=== PATIENT | female | born 1960 | race Caucasian/White ===

== ENCOUNTER 2016-11-22 08:07 | Inpatient (IN) | payer BC ==
[~2016-11-22 08:07] MED LIST: Lactated Ringers 1,000 ML IV SCH; Lidocaine 1%/Sod Bicarbonate in NS 8.4% 1 ML Syringe PRN; Sodium Chloride 0.9% 10 ML Syringe FLUSH PRN
--- NOTE | 2016-11-22 08:53 | PCM.PREANE ---
Preanesthetic Assessment - Procedure Proposed Procedure: Right total knee arthroplasty with L knee cortisone injection - Anesthesia/Transfusion/Family Hx Anesthesia History: Prior Anesthesia Without Reaction Family History of Anesthesia Reaction: No Transfusion History: Prior Transfusion Without Reaction Intubation History: Unknown - Review of Systems General: No Symptoms Pulmonary: No Symptoms Cardiovascular: No Symptoms Gastrointestinal: Other (GERD relieved with TUMS) Neurological: Headache (occasional ) Other: Reports: Easy Bruising, Anxiety - Physical Assessment NPO Status Date: 11/21/16 NPO Status Time: 19:00 Pulse: 60 O2 Sat by Pulse Oximetry: 98 Respiratory Rate: 16 Blood Pressure: 139/85 Temperature: 37.2 C Height: 1.63 m Weight: 85.275 kg ASA Class: 2 Mental Status: Alert & Oriented x3 Airway Class: Mallampati = 1 Dentition: Reports: Normal Dentition Thyro-Mental Finger Breadths: 3 Mouth Opening Finger Breadths: 3 ROM/Head Extension: Full Lungs: Clear to Auscultation, Normal Respiratory Effort Cardiovascular: Regular Rate, Regular Rhythm - Lab Values: Laboratory Last Values MRSA (PCR) Negative 11/09/16 11:55 - Allergies Allergies/Adverse Reactions: Allergies Allergy/AdvReac Type Severity Reaction Status Date / Time pear Allergy throat Verified 03/06/14 16:23 closes strawberry Allergy throat Verified 03/06/14 16:23 closes watermelon Allergy throat Uncoded 03/06/14 16:23 closes - Blood Blood Available: No - Anesthesia Plan Pre-Op Medication Ordered: None - Acknowledgements Anesthesia Type Planned: Spinal (with duramorph) Pt an Appropriate Candidate for the Planned Anesthesia: Yes Alternatives and Risks of Anesthesia Discussed w Pt/Guardian: Yes Pt/Guardian Understands and Agrees with Anesthesia Plan: Yes PreAnesthesia Questionnaire HEENT 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: Allergic Rhinitis, Other (See Below) Other HEENT History: glasses Cardiovascular 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: High Cholesterol Respiratory 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: None Genitourinary 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: None 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: , Other (See Below) Other OB/BYN History: menopausal Neurological 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: None Psychiatric 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: Anxiety Endocrine/Metabolic 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: None Hematologic 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: None Immunologic 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: None Oncologic (Cancer) 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: None Dermatologic 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: Other (See Below) Other Dermatologic History: eczematoid dermatitis - Past Surgical History Head Surgeries/Procedures: Reports: None Cardiovascular Surgical 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: None Respiratory Surgical 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: None GI Surgical 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: Appendectomy Female Surgical 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: Section, Other (See Below) Other Female Surgeries/Procedures: exploratory lapaprotomy Musculoskeletal Surgical 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: Shoulder Surgery, Other (See Below) Other Musculoskeletal Surgeries/Procedures:: Right knee arthroscopy Oncologic Surgical 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: None - SUBSTANCE USE Smoking Status *Q: Former Smoker Second Hand Smoke Exposure: No Days Per Week of Alcohol Use: 0 Recreational Drug Use History: No - HOME MEDS Home Medications: Home Meds FLUoxetine HCl [Prozac] 10 mg PO QAM #15 capsule 03/06/14 [Rx] LORazepam [LORazepam] 0.5 mg PO Q6H PRN 11/21/16 [History] - CURRENT (IN HOUSE) MEDS Current Meds: Current Medications Lactated Ringer's (Ringers, Lactated) 1,000 mls @ 125 mls/hr IV ASDIRECTED STARR Stop: 11/22/16 23:00 Lidocaine/Sodium Bicarbonate (Buffered Lidocaine 1% In Ns 8.4%) 0.25 ml .XX ONETIME PRN PRN Reason: Prior to IV Start Stop: 11/22/16 12:00 Sodium Chloride (Saline Flush) 10 ml FLUSH ASDIRECTED PRN PRN Reason: Keep Vein Open Stop: 11/22/16 12:00 Discontinued Medications Morphine Sulfate 8 mg/Epinephrine HCl 0.3 mg/Cefuroxime Sodium 750 mg/Ketorolac Tromethamine 30 mg/Sodium Chloride 27.9 ml 0 mg .XX ONETIME ONE Stop: 11/22/16 08:31
[2016-11-22] MEDS ORDERED: Propofol 200 MG/20 ML SDV ONE ×3 (09:24→12:26)
[2016-11-22] MEDS ORDERED: fentaNYL 100 MCG/2 ML SDV ONE (09:24)
[2016-11-22] MEDS ORDERED: Midazolam 1 MG/ML 2 ML SDV ONE (09:24)
[2016-11-22] MEDS ORDERED: Lidocaine 1% 4 ML ONE (09:24)
[2016-11-22] MEDS ORDERED: Ondansetron 4 MG/2 ML SDV ONE (09:24)
[2016-11-22] MEDS ORDERED: Morphine PF 10 MG/10 ML SDV ONE (09:25)
[2016-11-22] MEDS ORDERED: ceFAZolin 1 GM Vial ONE (09:25)
[2016-11-22] MEDS ORDERED: Lactated Ringers 1,000 ML ONE ×2 (11:41→12:54)
[2016-11-22] MEDS: Iodine/Sodium Iodide 2% Tincture 30 ML Bottle ONE ×2 (12:02→12:16)
[2016-11-22] MEDS: ceFAZolin 1 GM Vial ONE ×2 (12:02→12:21)
[2016-11-22] MEDS: Morphine 8 MG, EPINEPHrine 0.3 MG, Cefuroxime 750 MG, Ketorolac 30 MG, Sodium Chloride ... ONE ×15 (12:05→19:42)
[2016-11-22] MEDS: Vancomycin 1 GM SDV ONE ×2 (12:05→12:31)
[2016-11-22] MEDS: Bupivacaine 0.25% 30 ML SDV ONE ×2 (12:05→12:26)
[2016-11-22] MEDS: Bupivacaine 0.25% 10 ML SDV ONE ×2 (12:06→13:00)
[2016-11-22] MEDS: Triamcinolone Acetonide 40 MG/ML 1 ML MDV ONE ×2 (12:06→13:00)
[2016-11-22] MEDS ORDERED: ePHEDrine/Normal Saline 25 MG/5 ML Syringe ONE (12:34)
[2016-11-22] MEDS ORDERED: Morphine 2 MG/ML Syringe IVPUSH PRN (12:48)
[2016-11-22] MEDS ORDERED: diphenhydrAMINE 50 MG/ML SDV IVPUSH PRN ×2 (12:48→13:09)
[2016-11-22] MEDS ORDERED: Naloxone 0.4 MG/ML SDV IVPUSH PRN (12:48)
[2016-11-22] MEDS ORDERED: Sennosides 8.6 MG Tab PO PRN (12:48)
[2016-11-22] MEDS ORDERED: Bisacodyl 5 MG Tab PO PRN (12:48)
[2016-11-22] MEDS ORDERED: Magnesium Hydroxide 400 MG/5 ML Susp 30 ML Cup PO PRN (12:48)
[2016-11-22] MEDS ORDERED: LORazepam 0.5 MG Tab PO PRN (13:03)
--- NOTE | 2016-11-22 13:11 | PCM.POSTAN ---
POST ANESTHESIA ASSESSMENT - MENTAL STATUS Mental Status: Alert, Oriented - VITAL SIGNS Pulse Rate: 82 SaO2: 95 Resp Rate: 12 Blood Pressure: 120/59 Temperature: 36.8 C - RESPIRATORY Respiratory Status: Respiratory Rate WNL, Airway Patent, O2 Saturation Stable - CARDIOVASCULAR CV Status: Pulse Rate WNL, Blood Pressure Stable - GASTROINTESTINAL GI Status: No Symptoms - PAIN Pain Score: 0 - POST OP HYDRATION Hydration Status: Adequate & Stable - OBSERVATIONS Free Text/Narrative:: no anesthesia complications noted
--- NOTE | 2016-11-22 14:10 | PCM.CONS ---
H&P History of Present Illness - General Date of Service: 11/22/16 Admit Problem/Dx: Admission Diagnosis/Problem Admission Diagnosis/Problem Osteoarthritis of knee Source of Information: Patient, Old Records, Provider, RN Notes Reviewed History Limitations: Reports: Physical Impairment - History of Present Illness Initial Comments - Free Text/Narative: This is a 56-year-old, white female, with no significant past medical history except for bilateral knee osteoarthritis and obesity who underwent right total knee arthroplasty with left knee cortisone injection post operative day zero. Patient is nauseous and vomited x 2. Currently, her pain is controlled. She denies any other acute issues. Hospital Medicine was consulted for postoperative care. Right Knee Pain Score (Numeric/FACES): 5 - Related Data Allergies/Adverse Reactions: Allergies Allergy/AdvReac Type Severity Reaction Status Date / Time adhesive tape Allergy Itching Verified 11/22/16 16:44 pear Allergy throat Verified 03/06/14 16:23 closes strawberry Allergy throat Verified 03/06/14 16:23 closes watermelon Allergy throat Uncoded 03/06/14 16:23 closes Home Medications: Home Meds FLUoxetine HCl [Prozac] 10 mg PO QAM #15 capsule 03/06/14 [Rx] LORazepam [LORazepam] 0.5 mg PO Q6H PRN 11/21/16 [History] Past Medical History HEENT 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: Allergic Rhinitis, Other (See Below) Other HEENT History: glasses Cardiovascular 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: High Cholesterol Respiratory 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: None Genitourinary 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: None 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: , Other (See Below) Other OB/BYN History: menopausal Neurological 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: None Psychiatric 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: Anxiety Endocrine/Metabolic 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: None Hematologic 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: None Immunologic 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: None Oncologic (Cancer) 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: None Dermatologic 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: Other (See Below) Other Dermatologic History: eczematoid dermatitis - Past Surgical History Head Surgeries/Procedures: Reports: None Cardiovascular Surgical 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: None Respiratory Surgical 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: None GI Surgical 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: Appendectomy Female Surgical 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: Section, Other (See Below) Other Female Surgeries/Procedures: exploratory lapaprotomy Musculoskeletal Surgical 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: Shoulder Surgery, Other (See Below) Other Musculoskeletal Surgeries/Procedures:: Right knee arthroscopy Oncologic Surgical 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: None Social & Family History - Tobacco Use Smoking Status *Q: Former Smoker Years of Tobacco use: 27 Used Tobacco, but Quit: Yes Month Tobacco Last Used: 1999 Second Hand Smoke Exposure: No - Caffeine Use Caffeine Use: Reports: Coffee - Alcohol Use Days Per Week of Alcohol Use: 0 - Recreational Drug Use Recreational Drug Use: No H&P Review of Systems - Review of Systems: Review Of Systems: See Below General: Denies: Fever, Chills, Malaise, Weakness HEENT: Reports: No Symptoms Pulmonary: Denies: Shortness of Breath, Cough Cardiovascular: Denies: Chest Pain, Palpitations, Lightheadedness Gastrointestinal: Denies: Abdominal Pain, Nausea, Vomiting Genitourinary: Reports: No Symptoms Musculoskeletal: Reports: No Symptoms Skin: Denies: Cyanosis, Rash, Erythema, Wound Psychiatric: Denies: Depression, Anxiety, Agitation, Hallucinations Neurological: Reports: Gait Disturbance. Denies: Confusion Hematologic/Lymphatic: Reports: No Symptoms Immunologic: Reports: No Symptoms Exam - Exam Exam: See Below - Vital Signs Vital Signs: Last Vital Signs Temp 37.1 C 11/22/16 13:48 Pulse 82 11/22/16 13:10 Resp 14 11/22/16 13:48 BP 107/57 L 11/22/16 13:48 Pulse Ox 98 11/22/16 13:48 Weight: 85.275 kg - Exam General: Alert, Oriented, Cooperative, Mild Distress, Other (Obese) HEENT: Conjunctiva Clear, EACs Clear, EOMI, Hearing Intact, Mucosa Moist & [place] , Nares Patent, Normal Nasal Septum, Posterior Pharynx Clear, Pupils Equal, Pupils Reactive Neck: Supple, Trachea Midline, Full Range of Motion. No: JVD Lungs: Clear to Auscultation, Normal Respiratory Effort Cardiovascular: Regular Rate, Regular Rhythm GI/Abdominal Exam: Normal Bowel Sounds, Soft, Non-Tender, No Organomegaly (Female) Exam: Other (indwelling regan catheter) Rectal (Female) Exam: Deferred Back Exam: Normal Inspection Extremities: Normal Inspection, Normal Range of Motion, Non-Tender, No Pedal Edema, Normal Capillary Refill Skin: Warm, Dry, Intact Neuro Extensive - Mental Status: Oriented x3, Normal Cognition, Memory Intact Neuro Extensive - Motor, Sensory, Reflexes: CN II-XII Intact (limited but grossly intact), Abnormal Gait Psychiatric: Alert, Normal Affect, Normal Mood Consult PN Assessment/Plan POD#: 0 Procedures: Procedures ASSAY OF FREE THYROXINE (02/08/14) ASSAY OF LIPASE (03/06/14) ASSAY OF TROPONIN QUANT (03/06/14) ASSAY THYROID STIM HORMONE (02/08/14) C-REACTIVE PROTEIN (03/06/14) CHEST X-RAY 2VW FRONTAL&LATL (08/20/13) COMP SCREEN MAMMOGRAM ADD-ON (04/24/14) COMPLETE CBC W/AUTO DIFF WBC (03/06/14) COMPREHEN METABOLIC PANEL (03/06/14) CREATINE MB FRACTION (08/20/13) DXA BONE DENSITY AXIAL (04/24/14) ECG/MONITORING AND ANALYSIS (02/12/14) ELECTROCARDIOGRAM TRACING (03/06/14) EMERGENCY DEPT VISIT (03/06/14) EMERGENCY DEPT VISIT (08/20/13) LIPID PANEL (02/12/14) PROTHROMBIN TIME (08/20/13) REMOTE 30 DAY ECG REV/REPORT (02/12/14) ROUTINE VENIPUNCTURE (03/06/14) THER/PROPH/DIAG INJ IV PUSH (03/06/14) THROMBOPLASTIN TIME PARTIAL (08/20/13) URINALYSIS AUTO W/SCOPE (03/06/14) URINE BACTERIA CULTURE (03/06/14) Problem List Initiated/Reviewed/Updated: Yes Plan: Assessment: Acute: Post-Operative Care State - Stable - Continue to monitor for hemodynamic instability S/p Right Total Knee Arthroplasty with Left Knee Steroid Injection - Stable - DVT and Pain Management as per primary team Hx/o B/L Chronic Knee Pain - Pain Management as per primary team Post-Operative Nausea/Vomiting - Vomited x 2 already - PRN anti-emesis - Scopolamine patch x1 now Chronic: B/L Knee OA Obesity with BMI of 31.3 Plan: She is appears clinically stable at this time Routine AM labs Continue home meds PT/OT consult IS q2 awake Thank you for the opportunity to participate in the management of this patient. Requesting Provider: Dr. Garcia Date Consult Requested: 11/22/16 Reason for Consult: Post-Operative Care Patient History Reviewed: Yes Admission H&P Reviewed: Yes Consult Result/Summary: Fairly Stable
[2016-11-22] MEDS: Ondansetron 4 MG/2 ML SDV IVPUSH PRN (14:31)
--- NOTE | 2016-11-22 16:13 | CR ---
Right knee: AP and lateral views of the right knee were obtained. Comparison: No prior knee exam. Knee prosthesis is seen. Components are aligned. Underlying bony structures are intact. Soft tissue air is noted from the surgical procedure. Impression: 1. Satisfactory postop radiographic appearance of recently placed right knee prosthesis. Diagnostic code #2
[2016-11-22] MEDS ORDERED: Scopolamine 1.5 MG Transdermal Patch TOP ONE (17:24)
[2016-11-22] MEDS: ceFAZolin 2 GM in Premix Bag 1 BAG IV SCH (18:07)
[2016-11-22] MEDS ORDERED: Metoclopramide 10 MG/2 ML SDV IVPUSH ONE (18:22)
[2016-11-22] MEDS: Docusate Sodium 100 MG Cap PO SCH (20:28)
[2016-11-22] MEDS: Famotidine 20 MG Tab PO SCH (20:28)
--- NOTE | 2016-11-22 22:21 | PCM.OPNOTE ---
- General Post-Op/Procedure Note Date of Surgery/Procedure: 11/22/16 Operative Procedure(s): right total knee arthroplasty with left knee corticosteroid injection Pre Op Diagnosis: bilateral knee osteoarthrosis Post-Op Diagnosis: Same Anesthesia Technique: Local, MAC, Spinal Primary Surgeon: Laci Garcia Anesthesia Provider: Diogenes Carson Drier: Mireya Hollingswroth Drier: Marita Triplett EBL in mLs: 370 Complications: None Condition: Good Free Text/Narrative:: Intake & Output 11/22/16 11/22/16 11/22/16 06:59 14:59 22:59 Intake Total 300 473 Output Total 90 650 Balance 210 -177
--- NOTE | 2016-11-22 23:09 | OR ---
DATE OF OPERATION: 11/22/2016 SURGEON: Laci Garcia MD OPERATION PERFORMED: Right total knee arthroplasty with left knee corticosteroid injection. PREOPERATIVE DIAGNOSIS: Bilateral knee osteoarthrosis. POSTOPERATIVE DIAGNOSIS: Bilateral knee osteoarthrosis. ANESTHESIA: Local MAC and spinal. ANESTHESIA PROVIDER: Diogenes Carson CRNA. ASSISTANTS: Mireya Hollingsworth PA-C and Marita Triplett LPN. ESTIMATED BLOOD LOSS: 370 mL. COMPLICATIONS: None. CONDITION: Stable. DESCRIPTION OF PROCEDURE: The patient was identified in the preop holding area. Proper site was marked and identified by the surgeon. The patient was taken back to the operating theater where after adequate anesthesia, the patient's right lower extremity had a nonsterile tourniquet applied and was then sterilely prepped and draped in the usual sterile fashion. OR time-out was performed. The patient received 2 g IV Ancef. Right lower extremity was exsanguinated. Tourniquet was insufflated to 300 mmHg. Standard medial parapatellar incision was made and medial parapatellar arthrotomy was created. Deep fibers of the MCL were raised and anterior fat pad was resected. At this time, attention was turned to the patella. Patella measured a 23, it was resected to a 13 for a 29 x 9 mm patella. Drill holes were then drilled for a press fit patella. This was found to be in adequate position. At this time, attention was turned to the distal femur. An intramedullary hole was placed in distal femur and the intramedullary distal femoral cutting guide was then placed and 8 mm was resected off the distal femur. It was found to be an adequate resection. The medial lateral osteophytes were then removed. At this time, the sizing guide was placed. It was found to be a size 4 femur. Epicondylar axis holes were then drilled using [place] line and epicondyles as reference. A 4-in-1 cutting block was then placed for a size 4 and anterior and posterior chamfer cuts were then completed and found to be adequate. Box cut was then completed for a size 4 and was found to be adequate as well. Attention was turned to the tibia. Posterior retractor as well as medial lateral retractor was placed on the tibia. The extramedullary tibial cutting guide was then placed in the old footprint of the ACL. The ACL was aligned for roughly the center of the ankle and the second ray. At this time, 2 mm was resected off the affected medial side and was found to be an adequate resection with roughly a little more than 9 mm resection off the lateral side. At this time, a slope was set for roughly 0 to 30 degrees and the proximal tibia that was resected was found to be an adequate resection. Osteophytes were removed as well as medial lateral meniscus and posterior osteophytes were removed at this time as well. Size 4 base plate was found to have adequate coverage. It was placed in the proper rotation and trial implants found that the patient had full extension and flexion. The patella was tracking centrally. With an 11 mm trial spacer, had significant varus and valgus stability. At this time, trial components were removed. At this time, it was decided we would do a press-fit knee. The tibia was then stamped in proper rotation. The PEG holes were then drilled. The size 4 press-fit [place] femur was then impacted into place. The size 4 Jordana press-fit femur was then impacted into place and an 11 mm PS X3 polyethylene was impacted in place. The patient's knee was brought into full extension and had full motion at this time. A 29 x 9 mm patella was then press-fit in place and was found to have adequate fixation. At this time, tourniquet was deflated. 1 L of dilute Betadine solution along with 3 L of pulse lavage irrigation with Ancef was irrigated through the knee. Periarticular injection was then completed. The patient's knee was brought through a range of motion and was found to be stable. Topical tranexamic acid as well as topical vancomycin powder was then placed. A #2 barbed sutures used for closure of medial parapatellar arthrotomy, 2-0 Vicryl was used subcutaneously, and a running 3-0 Monocryl was used subcuticularly. Prineo was also applied to the skin. Next, after the sterile dressing was applied to the right lower extremity, under sterile technique, 2 mL of 40 mg Kenalog, 4 mL 0.25% Marcaine were injected in the left knee under sterile technique. The patient tolerated the procedure well and was sent to PACU in stable condition. TASHA /[id number]
[2016-11-23] MEDS: Cyclobenzaprine 10 MG Tab PO PRN ×2 (01:51→08:05)
[2016-11-23] MEDS: ceFAZolin 2 GM in Premix Bag 1 BAG IV SCH ×2 (01:52→10:10)
[2016-11-23] MEDS: Ondansetron 4 MG/2 ML SDV IVPUSH PRN (06:54)
[2016-11-23] MEDS: Acetaminophen/oxyCODONE 325-5 MG Tab PO PRN ×2 (06:55→12:57)
[2016-11-23] MEDS ORDERED: FLUoxetine 10 MG Cap PO SCH (08:00)
--- NOTE | 2016-11-23 08:01 | PCM.CONSN ---
- General Info Date of Service: 11/23/16 Admission Dx/Problem (Free Text): Admission Diagnosis/Problem Admission Diagnosis/Problem Osteoarthritis of knee POD #[address] Garcia Nausea improved, tolerating meals Pain stable Working with PT/OT Hgb stable today at 11.6 VSS Functional Status: Reports: Pain Controlled, Tolerating Diet, Ambulating, Urinating, Incentive Spirometry. Denies: New Symptoms - Review of Systems General: Reports: No Symptoms HEENT: Reports: No Symptoms Pulmonary: Reports: No Symptoms Cardiovascular: Reports: No Symptoms Gastrointestinal: Reports: No Symptoms Genitourinary: Reports: No Symptoms Musculoskeletal: Reports: Leg Pain Skin: Reports: No Symptoms Neurological: Reports: No Symptoms Psychiatric: Reports: No Symptoms - Patient Data Vitals - Most Recent: Last Vital Signs Temp 98.3 F 11/23/16 07:54 Pulse 71 11/23/16 07:54 Resp 16 11/23/16 07:54 BP 100/54 L 11/23/16 07:54 Pulse Ox 92 L 11/23/16 07:54 Weight - Most Recent: 188 lb I&O - Last 24 Hours: Intake & Output 11/22/16 11/23/16 11/23/16 22:59 06:59 14:59 Intake Total 473 300 Output Total 650 Balance -177 300 Lab Results Last 24 Hours: Laboratory Results - last 24 hr 11/23/16 Range/Units 07:30 WBC 11.20 H (3.98-10.04) K/mm3 RBC 3.84 L (3.98-5.22) M/mm3 Hgb 11.6 (11.2-15.7) gm/L Hct 34.8 (34.1-44.9) % MCV 90.6 (79.4-94.8) fl MCH 30.2 (25.6-32.2) pg MCHC 33.3 (32.2-35.5) g/dl RDW Std Deviation 41.5 (36.4-46.3) fL Plt Count 213 (182-369) K/mm3 MPV 9.1 L (9.4-12.3) fl Med Orders - Current: Current Medications Aspirin (Ecotrin) 325 mg PO BID [facility] Bisacodyl (Dulcolax) 5 mg PO DAILY PRN PRN Reason: Constipation Cyclobenzaprine HCl (Flexeril) 10 mg PO TID PRN PRN Reason: Spasms Last Admin: 11/23/16 01:51 Dose: 10 mg Diphenhydramine HCl (Benadryl) 25 mg IVPUSH Q4H PRN PRN Reason: Nausea Last Admin: 11/22/16 15:26 Dose: 25 mg Diphenhydramine HCl (Benadryl) 25 mg IVPUSH Q6H PRN PRN Reason: Itching Docusate Sodium (Colace) 100 mg PO BID [facility] Last Admin: 11/22/16 20:28 Dose: 100 mg Famotidine (Pepcid) 20 mg PO Q12H [facility] Last Admin: 11/22/16 20:28 Dose: 20 mg Fluoxetine HCl (Prozac) 10 mg PO QAM [facility] Last Admin: 11/23/16 07:00 Dose: 10 mg Cefazolin Sodium/Dextrose 2 gm (/ Premix) 50 mls @ 100 mls/hr IV Q8H [facility] Stop: 11/23/16 10:29 Last Admin: 11/23/16 01:52 Dose: 100 mls/hr Lorazepam (Ativan) 0.5 mg PO Q6H PRN PRN Reason: Anxiety Magnesium Hydroxide (Milk Of Magnesia) 30 ml PO BID PRN PRN Reason: Constipation Miscellaneous Information (Remove Patch) 1 ea TRDERM ONETIME [facility] Stop: 11/25/16 21:00 Morphine Sulfate (Morphine) 2 mg IVPUSH Q2H PRN PRN Reason: Breakthrough Pain Naloxone HCl (Narcan) 0.1 mg IVPUSH Q5M PRN PRN Reason: Oversedation Ondansetron HCl (Zofran) 4 mg IVPUSH Q6H PRN PRN Reason: Nausea/Vomiting Last Admin: 11/23/16 06:54 Dose: 4 mg Oxycodone/Acetaminophen (Percocet 325-5 Mg) 1 - 2 tab PO Q4H PRN PRN Reason: Pain Last Admin: 11/23/16 06:55 Dose: 1 tab Senna (Senna) 8.6 mg PO BID PRN PRN Reason: Constipation Discontinued Medications Bupivacaine HCl (Sensorcaine-Mpf 0.25%) Confirm Administered Dose 10 ml .ROUTE .STK-MED ONE Stop: 11/22/16 09:49 Last Admin: 11/22/16 12:06 Dose: 4 ml Bupivacaine HCl (Marcaine 0.25%) Confirm Administered Dose 30 ml .ROUTE .[facility] ONE Stop: 11/22/16 09:50 Last Admin: 11/22/16 12:05 Dose: 30 ml Cefazolin Sodium (Ancef) Confirm Administered Dose 2 gm .ROUTE .[facility]-MED ONE Stop: 11/22/16 09:26 Cefazolin Sodium (Ancef) Confirm Administered Dose 2 gm .ROUTE .[facility] ONE Stop: 11/22/16 09:49 Last Admin: 11/22/16 12:02 Dose: 2 gm Morphine Sulfate 8 mg/Epinephrine HCl 0.3 mg/Cefuroxime Sodium 750 mg/Ketorolac Tromethamine 30 mg/Sodium Chloride 27.9 ml 0 mg .XX ONETIME ONE Stop: 11/22/16 08:31 Last Admin: 11/22/16 19:42 Dose: Not Given Ephedrine Sulfate (Ephedrine In Ns) Confirm Administered Dose 25 mg .ROUTE .[facility] ONE Stop: 11/22/16 12:35 Fentanyl (Sublimaze) Confirm Administered Dose 100 mcg .ROUTE .[facility] ONE Stop: 11/22/16 09:25 Lactated Ringer's (Ringers, Lactated) 1,000 mls @ 125 mls/hr IV ASDIRECTED [facility] Stop: 11/22/16 23:00 Last Admin: 11/22/16 09:00 Dose: 125 mls/hr Lidocaine HCl (Xylocaine-Mpf 1%) Confirm Administered Dose 4 mls @ as directed .ROUTE .[facility] ONE Stop: 11/22/16 09:25 Lactated Ringer's (Ringers, Lactated) Confirm Administered Dose 1,000 mls @ as directed .ROUTE .[facility] ONE Stop: 11/22/16 11:42 Lactated Ringer's (Ringers, Lactated) Confirm Administered Dose 1,000 mls @ as directed .ROUTE .[facility] ONE Stop: 11/22/16 12:55 Iodine (Iodine 2% Mild Tincture) Confirm Administered Dose 30 ml .ROUTE .ST- MED ONE Stop: 11/22/16 09:49 Last Admin: 11/22/16 12:02 Dose: 18 ml Lidocaine/Sodium Bicarbonate (Buffered Lidocaine 1% In Ns 8.4%) 0.25 ml .XX ONETIME PRN PRN Reason: Prior to IV Start Stop: 11/22/16 12:00 Last Admin: 11/22/16 08:59 Dose: 0.25 ml Metoclopramide HCl (Reglan) 10 mg IVPUSH ONETIME ONE Stop: 11/22/16 18:23 Last Admin: 11/22/16 18:38 Dose: 10 mg Midazolam HCl (Versed 1 Mg/Ml) Confirm Administered Dose 2 mg .ROUTE .STK-MED ONE Stop: 11/22/16 09:25 Morphine Sulfate (Duramorph Pf) Confirm Administered Dose 10 mg .ROUTE .STK-MED ONE Stop: 11/22/16 09:26 Ondansetron HCl (Zofran) Confirm Administered Dose 4 mg .ROUTE .STK-MED ONE Stop: 11/22/16 09:25 Propofol (Diprivan 20 Ml) Confirm Administered Dose 200 mg .ROUTE .STK-MED ONE Stop: 11/22/16 09:25 Propofol (Diprivan 20 Ml) Confirm Administered Dose 200 mg .ROUTE .STK-MED ONE Stop: 11/22/16 11:51 Propofol (Diprivan 20 Ml) Confirm Administered Dose 200 mg .ROUTE .STK-MED ONE Stop: 11/22/16 12:27 Scopolamine (Transderm-Scop) 1.5 mg TOP ONETIME ONE Stop: 11/22/16 17:25 Last Admin: 11/22/16 18:05 Dose: 1.5 mg Sodium Chloride (Saline Flush) 10 ml FLUSH ASDIRECTED PRN PRN Reason: Keep Vein Open Stop: 11/22/16 12:00 Tranexamic Acid (Cyklokapron) Confirm Administered Dose 1,000 mg .ROUTE .STK- MED ONE Stop: 11/22/16 09:49 Tranexamic Acid (Cyklokapron) Confirm Administered Dose 1,000 mg .ROUTE .STK- MED ONE Stop: 11/22/16 09:56 Last Admin: 11/22/16 12:06 Dose: 1,000 mg Triamcinolone Acetonide (Kenalog-40) Confirm Administered Dose 80 mg .ROUTE .STK -MED ONE Stop: 11/22/16 09:49 Last Admin: 11/22/16 12:06 Dose: 80 mg Vancomycin HCl (Vancomycin) Confirm Administered Dose 1 gm .ROUTE .STK-MED ONE Stop: 11/22/16 09:49 Last Admin: 11/22/16 12:05 Dose: 1 gm - Exam Quality Assessment: DVT Prophylaxis General: Alert, Oriented, Cooperative, No Acute Distress HEENT: Pupils Equal, EOMI, Mucous Membr. Moist/Damar Neck: Supple Lungs: Clear to Auscultation, Normal Respiratory Effort Cardiovascular: Regular Rate, Regular Rhythm GI/Abdominal Exam: Normal Bowel Sounds, Soft, Non-Tender (Female) Exam: Deferred Extremities: Other (Teds, SCD's, Ice to rt knee) Peripheral Pulses: 2+: Dorsalis Pedis (L), Dorsalis Pedis (R) Skin: Warm, Dry Neurological: No New Focal Deficit Psy/Mental Status: Alert, Normal Affect, Normal Mood Consult PN Assessment/Plan POD#: 1 Procedures: Procedures ASSAY OF FREE THYROXINE (02/08/14) ASSAY OF LIPASE (03/06/14) ASSAY OF TROPONIN QUANT (03/06/14) ASSAY THYROID STIM HORMONE (02/08/14) C-REACTIVE PROTEIN (03/06/14) CHEST X-RAY 2VW FRONTAL&LATL (08/20/13) COMP SCREEN MAMMOGRAM ADD-ON (04/24/14) COMPLETE CBC W/AUTO DIFF WBC (03/06/14) COMPREHEN METABOLIC PANEL (03/06/14) CREATINE MB FRACTION (08/20/13) DXA BONE DENSITY AXIAL (04/24/14) ECG/MONITORING AND ANALYSIS (02/12/14) ELECTROCARDIOGRAM TRACING (03/06/14) EMERGENCY DEPT VISIT (03/06/14) EMERGENCY DEPT VISIT (08/20/13) LIPID PANEL (02/12/14) PROTHROMBIN TIME (08/20/13) REMOTE 30 DAY ECG REV/REPORT (02/12/14) ROUTINE VENIPUNCTURE (03/06/14) THER/PROPH/DIAG INJ IV PUSH (03/06/14) THROMBOPLASTIN TIME PARTIAL (08/20/13) URINALYSIS AUTO W/SCOPE (03/06/14) URINE BACTERIA CULTURE (03/06/14) (1) S/P total knee arthroplasty SNOMED Code(s): 4707249825395, 973334752, 2988521866625 Code(s): Z96.659 - PRESENCE OF UNSPECIFIED ARTIFICIAL KNEE JOINT Priority: High Current Visit: Yes Qualifiers: Laterality: right Qualified Code(s): Z96.651 - Presence of right artificial knee joint (2) Osteoarthritis SNOMED Code(s): 862554810 Code(s): M19.90 - UNSPECIFIED OSTEOARTHRITIS, UNSPECIFIED SITE Priority: High Current Visit: Yes Qualifiers: Osteoarthritis location: knee Osteoarthritis type: primary Laterality: right Qualified Code(s): M17.11 - Unilateral primary osteoarthritis, right knee (3) HLD (hyperlipidemia) SNOMED Code(s): 34565560 Code(s): E78.5 - HYPERLIPIDEMIA, UNSPECIFIED Priority: Medium Current Visit: No Qualifiers: Hyperlipidemia type: unspecified Qualified Code(s): E78.5 - Hyperlipidemia , unspecified (4) Anxiety SNOMED Code(s): 86047609 Code(s): F41.9 - ANXIETY DISORDER, UNSPECIFIED Priority: Medium Current Visit: No (5) Eczema SNOMED Code(s): 97206330 Code(s): L30.9 - DERMATITIS, UNSPECIFIED Priority: Medium Current Visit: No Qualifiers: Eczema type: unspecified Qualified Code(s): L30.9 - Dermatitis, unspecified Problem List Initiated/Reviewed/Updated: Yes Plan: I/P: S/P Rt TKA POD #1, Dr. Garcia -Pain management and DVT prophylax per Primary Team -RT/IS -PT/OT -Hgb stable 11.6 -VSS -Postop nausea improved/resolved Chronic- stable, cont home meds: HLD Anxiety Eczema Menopausal state Other: GI prophylax CM/SW for assist with DC planning- Plans for DC home today with family care; OK from Hospitalist standpoint for DC home today. Patient is Full Code status
[2016-11-23] MEDS: Famotidine 20 MG Tab PO SCH (08:04)
[2016-11-23] MEDS: Docusate Sodium 100 MG Cap PO SCH (08:04)
[2016-11-23] MEDS ORDERED: Aspirin 325 MG Tab.EC PO SCH (09:00)
--- NOTE | 2016-11-23 13:04 | PCM.SURGPN ---
- General Info Date of Service: 11/23/16 POD#: 1 Functional Status: Reports: Pain Controlled, Tolerating Diet, Ambulating, Urinating, Incentive Spirometry - Review of Systems General: Denies: Fever, Chills Musculoskeletal: Reports: Other (The pt has met inpatient therapy goals.) - Patient Data Vitals - Most Recent: Last Vital Signs Temp 98.3 F 11/23/16 07:54 Pulse 71 11/23/16 07:54 Resp 16 11/23/16 07:54 BP 100/54 L 11/23/16 07:54 Pulse Ox 92 L 11/23/16 07:54 Weight - Most Recent: 188 lb I&O - Last 24 Hours: Intake & Output 11/22/16 11/23/16 11/23/16 22:59 06:59 14:59 Intake Total 593 300 50 Output Total 650 Balance -57 300 50 Lab Results Last 24 Hrs: Laboratory Results - last 24 hr 11/23/16 11/23/16 Range/Units 07:30 07:30 WBC 11.20 H (3.98-10.04) K/mm3 RBC 3.84 L (3.98-5.22) M/mm3 Hgb 11.6 (11.2-15.7) gm/L Hct 34.8 (34.1-44.9) % MCV 90.6 (79.4-94.8) fl MCH 30.2 (25.6-32.2) pg MCHC 33.3 (32.2-35.5) g/dl RDW Std Deviation 41.5 (36.4-46.3) fL Plt Count 213 (182-369) K/mm3 MPV 9.1 L (9.4-12.3) fl Sodium 138 (136-145) mEq/L Potassium 5.1 (3.5-5.1) mEq/L Chloride 102 (98-107) mEq/L Carbon Dioxide 32 (21-32) mEq/L Anion Gap 9.1 (5-15) BUN 12 (7-18) mg/dL Creatinine 0.7 (0.55-1.02) mg/dL Est Cr Clr Drug Dosing 82.67 mL/min Estimated GFR (MDRD) > 60 (>60) mL/min BUN/Creatinine Ratio 17.1 (14-18) Glucose 104 (74-106) mg/dL Calcium 8.5 (8.5-10.1) mg/dL Total Bilirubin 1.0 (0.2-1.0) mg/dL AST 9 L (15-37) U/L ALT 20 (14-59) U/L Alkaline Phosphatase 52 (46-116) U/L Total Protein 5.9 L (6.4-8.2) g/dl Albumin 2.9 L (3.4-5.0) g/dl Globulin 3.0 gm/dL Albumin/Globulin Ratio 1.0 (1-2) Med Orders - Current: Current Medications Aspirin (Ecotrin) 325 mg PO BID [facility] Last Admin: 11/23/16 08:03 Dose: 325 mg Bisacodyl (Dulcolax) 5 mg PO DAILY PRN PRN Reason: Constipation Cyclobenzaprine HCl (Flexeril) 10 mg PO TID PRN PRN Reason: Spasms Last Admin: 11/23/16 08:05 Dose: 10 mg Diphenhydramine HCl (Benadryl) 25 mg IVPUSH Q4H PRN PRN Reason: Nausea Last Admin: 11/22/16 15:26 Dose: 25 mg Diphenhydramine HCl (Benadryl) 25 mg IVPUSH Q6H PRN PRN Reason: Itching Docusate Sodium (Colace) 100 mg PO BID [facility] Last Admin: 11/23/16 08:04 Dose: 100 mg Famotidine (Pepcid) 20 mg PO Q12H [facility] Last Admin: 11/23/16 08:04 Dose: 20 mg Fluoxetine HCl (Prozac) 10 mg PO QAM [facility] Last Admin: 11/23/16 07:00 Dose: 10 mg Lorazepam (Ativan) 0.5 mg PO Q6H PRN PRN Reason: Anxiety Last Admin: 11/23/16 08:04 Dose: 0.5 mg Magnesium Hydroxide (Milk Of Magnesia) 30 ml PO BID PRN PRN Reason: Constipation Miscellaneous Information (Remove Patch) 1 ea TRDERM ONETIME [facility] Stop: 11/25/16 21:00 Morphine Sulfate (Morphine) 2 mg IVPUSH Q2H PRN PRN Reason: Breakthrough Pain Naloxone HCl (Narcan) 0.1 mg IVPUSH Q5M PRN PRN Reason: Oversedation Ondansetron HCl (Zofran) 4 mg IVPUSH Q6H PRN PRN Reason: Nausea/Vomiting Last Admin: 11/23/16 06:54 Dose: 4 mg Oxycodone/Acetaminophen (Percocet 325-5 Mg) 1 - 2 tab PO Q4H PRN PRN Reason: Pain Last Admin: 11/23/16 12:57 Dose: 2 tab Senna (Senna) 8.6 mg PO BID PRN PRN Reason: Constipation Discontinued Medications Bupivacaine HCl (Sensorcaine-Mpf 0.25%) Confirm Administered Dose 10 ml .ROUTE .STK-MED ONE Stop: 11/22/16 09:49 Last Admin: 11/22/16 13:00 Dose: 4 ml Bupivacaine HCl (Marcaine 0.25%) Confirm Administered Dose 30 ml .ROUTE .STK- MED ONE Stop: 11/22/16 09:50 Last Admin: 11/22/16 12:26 Dose: 30 ml Cefazolin Sodium (Ancef) Confirm Administered Dose 2 gm .ROUTE .STK-MED ONE Stop: 11/22/16 09:26 Cefazolin Sodium (Ancef) Confirm Administered Dose 2 gm .ROUTE .STK-MED ONE Stop: 11/22/16 09:49 Last Admin: 11/22/16 12:21 Dose: 2 gm Morphine Sulfate 8 mg/Epinephrine HCl 0.3 mg/Cefuroxime Sodium 750 mg/Ketorolac Tromethamine 30 mg/Sodium Chloride 27.9 ml 0 mg .XX ONETIME ONE Stop: 11/22/16 08:31 Last Admin: 11/22/16 19:42 Dose: Not Given Ephedrine Sulfate (Ephedrine In Ns) Confirm Administered Dose 25 mg .ROUTE .STK- MED ONE Stop: 11/22/16 12:35 Fentanyl (Sublimaze) Confirm Administered Dose 100 mcg .ROUTE .STK-MED ONE Stop: 11/22/16 09:25 Lactated Ringer's (Ringers, Lactated) 1,000 mls @ 125 mls/hr IV ASDIRECTED [facility] Stop: 11/22/16 23:00 Last Admin: 11/22/16 09:00 Dose: 125 mls/hr Lidocaine HCl (Xylocaine-Mpf 1%) Confirm Administered Dose 4 mls @ as directed .ROUTE .STK-MED ONE Stop: 11/22/16 09:25 Lactated Ringer's (Ringers, Lactated) Confirm Administered Dose 1,000 mls @ as directed .ROUTE .STK-MED ONE Stop: 11/22/16 11:42 Lactated Ringer's (Ringers, Lactated) Confirm Administered Dose 1,000 mls @ as directed .ROUTE .STK-MED ONE Stop: 11/22/16 12:55 Cefazolin Sodium/Dextrose 2 gm (/ Premix) 50 mls @ 100 mls/hr IV Q8H [facility] Stop: 11/23/16 10:29 Last Admin: 11/23/16 10:10 Dose: 100 mls/hr Iodine (Iodine 2% Mild Tincture) Confirm Administered Dose 30 ml .ROUTE .STK- MED ONE Stop: 11/22/16 09:49 Last Admin: 11/22/16 12:16 Dose: 18 ml Lidocaine/Sodium Bicarbonate (Buffered Lidocaine 1% In Ns 8.4%) 0.25 ml .XX ONETIME PRN PRN Reason: Prior to IV Start Stop: 11/22/16 12:00 Last Admin: 11/22/16 08:59 Dose: 0.25 ml Metoclopramide HCl (Reglan) 10 mg IVPUSH ONETIME ONE Stop: 11/22/16 18:23 Last Admin: 11/22/16 18:38 Dose: 10 mg Midazolam HCl (Versed 1 Mg/Ml) Confirm Administered Dose 2 mg .ROUTE .STK-MED ONE Stop: 11/22/16 09:25 Morphine Sulfate (Duramorph Pf) Confirm Administered Dose 10 mg .ROUTE .STK-MED ONE Stop: 11/22/16 09:26 Ondansetron HCl (Zofran) Confirm Administered Dose 4 mg .ROUTE .STK-MED ONE Stop: 11/22/16 09:25 Propofol (Diprivan 20 Ml) Confirm Administered Dose 200 mg .ROUTE .STK-MED ONE Stop: 11/22/16 09:25 Propofol (Diprivan 20 Ml) Confirm Administered Dose 200 mg .ROUTE .STK-MED ONE Stop: 11/22/16 11:51 Propofol (Diprivan 20 Ml) Confirm Administered Dose 200 mg .ROUTE .STK-MED ONE Stop: 11/22/16 12:27 Scopolamine (Transderm-Scop) 1.5 mg TOP ONETIME ONE Stop: 11/22/16 17:25 Last Admin: 11/22/16 18:05 Dose: 1.5 mg Sodium Chloride (Saline Flush) 10 ml FLUSH ASDIRECTED PRN PRN Reason: Keep Vein Open Stop: 11/22/16 12:00 Tranexamic Acid (Cyklokapron) Confirm Administered Dose 1,000 mg .ROUTE .STK- MED ONE Stop: 11/22/16 09:49 Tranexamic Acid (Cyklokapron) Confirm Administered Dose 1,000 mg .ROUTE .STK- MED ONE Stop: 11/22/16 09:56 Last Admin: 11/22/16 12:34 Dose: 1,000 mg Triamcinolone Acetonide (Kenalog-40) Confirm Administered Dose 80 mg .ROUTE .STK -MED ONE Stop: 11/22/16 09:49 Last Admin: 11/22/16 13:00 Dose: 80 mg Vancomycin HCl (Vancomycin) Confirm Administered Dose 1 gm .ROUTE .STK-MED ONE Stop: 11/22/16 09:49 Last Admin: 11/22/16 12:31 Dose: 1 gm - Exam Wound/Incisions: Dressing Dry and Intact General: Alert, Cooperative, No Acute Distress Lungs: Normal Respiratory Effort Extremities: Other (NVS intact for BLE. James's negative BLE.) - Problem List Review Problem List Initiated/Reviewed/Updated: Yes - My Orders Last 24 Hours: Active Orders 24 hr Category Date Time Status Patient Status [ADT] Routine ADT 11/22/16 12:52 Active Ambulate [RC] PER UNIT ROUTINE Care 11/22/16 12:48 Active Antiembolic Devices [RC] QSHIFT Care 11/22/16 12:55 Active Communication Order [RC] QSHIFT Care 11/22/16 13:08 Active Notify Provider Consults [RC] ASDIRECTED Care 11/22/16 12:56 Active Notify Provider [RC] PRN Care 11/22/16 13:09 Active Oxygen Therapy [RC] .PRN Care 11/22/16 13:08 Active Pulse Oximetry [RC] ASDIRECTED Care 11/22/16 13:08 Active RT Incentive Spirometry [RC] Q1HWA Care 11/22/16 12:53 Active Ready for Discharge [RC] PER UNIT ROUTINE Care 11/23/16 12:39 Active Up to Chair [RC] ASDIRECTED Care 11/22/16 12:48 Active VTE/DVT Education [RC] DAILY Care 11/22/16 12:55 Active Vital Signs [RC] 09,15,21,03 Care 11/22/16 12:52 Active Consult to Physician [CONS] Routine Cons 11/22/16 12:48 Active OT Evaluation and Treatment [CONS] Routine Cons 11/22/16 12:48 Active PT Evaluation and Treatment [CONS] Routine Cons 11/22/16 12:56 Active Regular Diet [DIET] Diet 11/22/16 Dinner Active Acetaminophen/oxyCODONE [Percocet 325-5 MG] Med 11/22/16 12:48 Active 1 - 2 tab PO Q4H PRN Aspirin [Ecotrin] Med 11/23/16 09:00 Active 325 mg PO BID Bisacodyl [Dulcolax] Med 11/22/16 12:48 Active 5 mg PO DAILY PRN Cyclobenzaprine [Flexeril] Med 11/22/16 12:48 Active 10 mg PO TID PRN Docusate Sodium [Colace] Med 11/22/16 21:00 Active 100 mg PO BID FLUoxetine [PROzac] Med 11/23/16 08:00 Active 10 mg PO QAM Famotidine [Pepcid] Med 11/22/16 21:00 Active 20 mg PO Q12H LORazepam [Ativan] Med 11/22/16 13:03 Active 0.5 mg PO Q6H PRN Magnesium Hydroxide [Milk of Magnesia] Med 11/22/16 12:48 Active 30 ml PO BID PRN Morphine Med 11/22/16 12:48 Active 2 mg IVPUSH Q2H PRN Naloxone [Narcan] Med 11/22/16 12:48 Active 0.1 mg IVPUSH Q5M PRN Ondansetron [Zofran] Med 11/22/16 12:48 Active 4 mg IVPUSH Q6H PRN Remove Patch Med 11/25/16 17:30 Active 1 ea TRDERM ONETIME Sennosides [Senna] Med 11/22/16 12:48 Active 8.6 mg PO BID PRN diphenhydrAMINE [Benadryl] Med 11/22/16 12:48 Active 25 mg IVPUSH Q4H PRN diphenhydrAMINE [Benadryl] Med 11/22/16 13:09 Active 25 mg IVPUSH Q6H PRN Antiembolic Hose [OM.PC] Per Unit Routine Oth 11/22/16 12:55 Ordered DVT/VTE Prophylaxis Reflex [OM.PC] Routine Oth 11/22/16 12:48 Ordered Ice Therapy [OM.PC] Per Unit Routine Oth 11/22/16 12:53 Ordered Sequential Compression Device [OM.PC] Per Unit Routine Oth 11/22/16 12:57 Ordered Resuscitation Status Routine Resus Stat 11/22/16 12:48 Ordered Medication Orders Aspirin (Ecotrin) 325 mg PO BID [facility] Last Admin: 11/23/16 08:03 Dose: 325 mg Bisacodyl (Dulcolax) 5 mg PO DAILY PRN PRN Reason: Constipation Cyclobenzaprine HCl (Flexeril) 10 mg PO TID PRN PRN Reason: Spasms Last Admin: 11/23/16 08:05 Dose: 10 mg Admin: 11/23/16 01:51 Dose: 10 mg Diphenhydramine HCl (Benadryl) 25 mg IVPUSH Q4H PRN PRN Reason: Nausea Last Admin: 11/22/16 15:26 Dose: 25 mg Diphenhydramine HCl (Benadryl) 25 mg IVPUSH Q6H PRN PRN Reason: Itching Docusate Sodium (Colace) 100 mg PO BID [facility] Last Admin: 11/23/16 08:04 Dose: 100 mg Admin: 11/22/16 20:28 Dose: 100 mg Famotidine (Pepcid) 20 mg PO Q12H [facility] Last Admin: 11/23/16 08:04 Dose: 20 mg Admin: 11/22/16 20:28 Dose: 20 mg Fluoxetine HCl (Prozac) 10 mg PO QAM [facility] Last Admin: 11/23/16 07:00 Dose: 10 mg Lorazepam (Ativan) 0.5 mg PO Q6H PRN PRN Reason: Anxiety Last Admin: 11/23/16 08:04 Dose: 0.5 mg Magnesium Hydroxide (Milk Of Magnesia) 30 ml PO BID PRN PRN Reason: Constipation Miscellaneous Information (Remove Patch) 1 ea TRDERM ONETIME [facility] Stop: 11/25/16 21:00 Morphine Sulfate (Morphine) 2 mg IVPUSH Q2H PRN PRN Reason: Breakthrough Pain Naloxone HCl (Narcan) 0.1 mg IVPUSH Q5M PRN PRN Reason: Oversedation Ondansetron HCl (Zofran) 4 mg IVPUSH Q6H PRN PRN Reason: Nausea/Vomiting Last Admin: 11/23/16 06:54 Dose: 4 mg Admin: 11/22/16 14:31 Dose: 4 mg Oxycodone/Acetaminophen (Percocet 325-5 Mg) 1 - 2 tab PO Q4H PRN PRN Reason: Pain Last Admin: 11/23/16 12:57 Dose: 2 tab Admin: 11/23/16 06:55 Dose: 1 tab Senna (Senna) 8.6 mg PO BID PRN PRN Reason: Constipation - Assessment Assessment (Free Text/Narrative):: POD#1 - right TKA - Plan Plan (Free Text/Narrative):: 1. ASA 325mg BID, frequent mobility, TEDs. 2. Outpatient P.T. 3. Hgb 11.6 today. 4. Discharge to home today. The pt will have the assistance of her son, [id number] and friends. The pt's case was discussed with Dr. Garcia today.
[2016-11-23 15:32] VITALS: BP 112/82
--- NOTE | 2016-11-24 10:05 | PCM.DCSUM1 ---
Discharge Summary - Hospital Course Brief History: Yaa is a 56 yo female who underwent right TKA wit left knee injection with Dr. Garcia on 11-22-2016. The procedure was completed under spinal anesthesia. The pt tolerated the procedure well and was admitted to the Medical -Surgical Unit. Medical management was provided by the Hospitalist service. The pt's Hospital course was uneventful. The pt's Hgb on POD#1 was 11.6. On POD#1, 325mg BID was initiated for VTE prophylaxis. SCDs and TEDs were also ordered. A Mepilex dressing was placed at the incision site at the time of surgery and remained clean and dry. The pt participated in P.T. and O.T. and progressed well. The pt was allowed to WBAT. On POD#1, the pt was deemed appropriate to discharge to home. - Discharge Data Discharge Date: 11/23/16 Discharge Disposition: Home, Self-Care 01 Condition: Good - Patient Summary/Data Operative Procedure(s) Performed: right total knee arthroplasty with left knee corticosteroid injection Consults: Consultations 11/22/16 12:48 Consult to Physician [CONS] Routine OT Evaluation and Treatment [CONS] Routine 11/22/16 12:56 PT Evaluation and Treatment [CONS] Routine - Patient Instructions Diet: Usual Diet as Tolerated Activity: Apply Ice, As Tolerated, Elevate Extremity, Full Weight Bearing Driving: Do Not Drive Showering/Bathing: May Shower Wound/Incision Care: Keep Operative Site/Wound Site Clean and Dry, Do NOT Change Dressing Notify Provider of: Fever, Increased Pain, Swelling and Redness, Drainage, Nausea and/or Vomiting Other/Special Instructions: Please get up and moving around every hour while awake. This helps to prevent blood clots. Please use your walker and have help as needed. Take a 325mg ASPIRIN TWICE DAILY. This also helps to prevent blood clots. The aspirin is being used for blood clot prevention and not for pain management, so please do not miss a dose of the medication. Do the exercises you were taught in the Hospital. Schedule for P.T. Use the pain medication as needed. The medication may cause drowsiness and constipation. Contact your primary care provider for instructions if you are constipated. You may use a stool softener like docusate sodium or Colace 100mg twice daily and/or a laxative like Miralax daily for constipation. Use the ice machine often. Elevate the limb to decrease swelling. Keep the Mepilex dressing in place until follow-up at the Clinic. Notify the Clinic if the dressing is saturated. Wear the ISMAEL hose during the day and you may remove these at night. Eat a diet high in protein as this well help with healing. Schedule an appointment with your primary care provider for 'routine post-op care'. Call the Clinic with questions or concerns - [phone]. - Discharge Plan Prescriptions/Med Rec: Acetaminophen/oxyCODONE [Percocet 325-5 MG] 1 - 2 tab PO Q6H PRN #60 tablet PRN Reason: Pain Aspirin [Ecotrin] 325 mg PO BID #60 tab.ec Cyclobenzaprine [Flexeril] 10 mg PO TID PRN #40 tablet PRN Reason: Spasms Home Medications: Home Meds FLUoxetine HCl [Prozac] 10 mg PO QAM #15 capsule 03/06/14 [Rx] LORazepam 0.5 mg PO Q6H PRN 11/21/16 [History] Acetaminophen/oxyCODONE [Percocet 325-5 MG] 1 - 2 tab PO Q6H PRN #60 tablet [Rx] Aspirin [Ecotrin] 325 mg PO BID #60 tab.ec 11/23/16 [Rx] Bisacodyl [Dulcolax] 5 mg PO DAILY PRN tablet 11/23/16 [Rx] Cyclobenzaprine [Flexeril] 10 mg PO TID PRN #40 tablet 11/23/16 [Rx] Docusate Sodium [Colace] 100 mg PO BID cap 11/23/16 [Rx] Famotidine [Pepcid] 20 mg PO Q12H tablet 11/23/16 [Rx] Magnesium Hydroxide [Milk of Magnesia] 30 ml PO BID PRN cup 11/23/16 [Rx] Remove Patch 1 ea TRDERM ONETIME each 11/23/16 [Rx] Sennosides [Senna] 8.6 mg PO BID PRN tablet 11/23/16 [Rx] Patient Handouts: Total Knee Replacement, Care After, [id number], Knee Injection, Total Knee Replacement, [id number], Aspirin, ASA oral tablets, Knee Rehabilitation Guidelines Following Surgery Referrals: Laumb,Mireya J, PA-C [Physician Therapeutic Activities Services Worker] - - Patient Data Vitals - Most Recent: Last Vital Signs Temp 97.8 F 11/23/16 15:00 Pulse 78 11/23/16 15:00 Resp 16 11/23/16 15:00 BP 112/82 11/23/16 15:00 Pulse Ox 94 L 11/23/16 15:00 Weight - Most Recent: 188 lb I&O - Last 24 hours: Intake & Output 11/23/16 11/24/16 11/24/16 22:59 06:59 14:59 Intake Total 0 Balance 0 Med Orders - Current: Current Medications Discontinued Medications Aspirin (Ecotrin) 325 mg PO BID STARR Last Admin: 11/23/16 08:03 Dose: 325 mg Bisacodyl (Dulcolax) 5 mg PO DAILY PRN PRN Reason: Constipation Bupivacaine HCl (Sensorcaine-Mpf 0.25%) Confirm Administered Dose 10 ml .ROUTE .STK-MED ONE Stop: 11/22/16 09:49 Last Admin: 11/22/16 13:00 Dose: 4 ml Bupivacaine HCl (Marcaine 0.25%) Confirm Administered Dose 30 ml .ROUTE .STK- MED ONE Stop: 11/22/16 09:50 Last Admin: 11/22/16 12:26 Dose: 30 ml Cefazolin Sodium (Ancef) Confirm Administered Dose 2 gm .ROUTE .STK-MED ONE Stop: 11/22/16 09:26 Cefazolin Sodium (Ancef) Confirm Administered Dose 2 gm .ROUTE .STK-MED ONE Stop: 11/22/16 09:49 Last Admin: 11/22/16 12:21 Dose: 2 gm Morphine Sulfate 8 mg/Epinephrine HCl 0.3 mg/Cefuroxime Sodium 750 mg/Ketorolac Tromethamine 30 mg/Sodium Chloride 27.9 ml 0 mg .XX ONETIME ONE Stop: 11/22/16 08:31 Last Admin: 11/22/16 19:42 Dose: Not Given Cyclobenzaprine HCl (Flexeril) 10 mg PO TID PRN PRN Reason: Spasms Last Admin: 11/23/16 08:05 Dose: 10 mg Diphenhydramine HCl (Benadryl) 25 mg IVPUSH Q4H PRN PRN Reason: Nausea Last Admin: 11/22/16 15:26 Dose: 25 mg Diphenhydramine HCl (Benadryl) 25 mg IVPUSH Q6H PRN PRN Reason: Itching Docusate Sodium (Colace) 100 mg PO BID [facility] Last Admin: 11/23/16 08:04 Dose: 100 mg Ephedrine Sulfate (Ephedrine In Ns) Confirm Administered Dose 25 mg .ROUTE .STK- MED ONE Stop: 11/22/16 12:35 Famotidine (Pepcid) 20 mg PO Q12H [facility] Last Admin: 11/23/16 08:04 Dose: 20 mg Fentanyl (Sublimaze) Confirm Administered Dose 100 mcg .ROUTE .STK-MED ONE Stop: 11/22/16 09:25 Fluoxetine HCl (Prozac) 10 mg PO QAM [facility] Last Admin: 11/23/16 07:00 Dose: 10 mg Lactated Ringer's (Ringers, Lactated) 1,000 mls @ 125 mls/hr IV ASDIRECTED [facility] Stop: 11/22/16 23:00 Last Admin: 11/22/16 09:00 Dose: 125 mls/hr Lidocaine HCl (Xylocaine-Mpf 1%) Confirm Administered Dose 4 mls @ as directed .ROUTE .STK-MED ONE Stop: 11/22/16 09:25 Lactated Ringer's (Ringers, Lactated) Confirm Administered Dose 1,000 mls @ as directed .ROUTE .STK-MED ONE Stop: 11/22/16 11:42 Lactated Ringer's (Ringers, Lactated) Confirm Administered Dose 1,000 mls @ as directed .ROUTE .STK-MED ONE Stop: 11/22/16 12:55 Cefazolin Sodium/Dextrose 2 gm (/ Premix) 50 mls @ 100 mls/hr IV Q8H [facility] Stop: 11/23/16 10:29 Last Admin: 11/23/16 10:10 Dose: 100 mls/hr Iodine (Iodine 2% Mild Tincture) Confirm Administered Dose 30 ml .ROUTE .STK- MED ONE Stop: 11/22/16 09:49 Last Admin: 11/22/16 12:16 Dose: 18 ml Lidocaine/Sodium Bicarbonate (Buffered Lidocaine 1% In Ns 8.4%) 0.25 ml .XX ONETIME PRN PRN Reason: Prior to IV Start Stop: 11/22/16 12:00 Last Admin: 11/22/16 08:59 Dose: 0.25 ml Lorazepam (Ativan) 0.5 mg PO Q6H PRN PRN Reason: Anxiety Last Admin: 11/23/16 08:04 Dose: 0.5 mg Magnesium Hydroxide (Milk Of Magnesia) 30 ml PO BID PRN PRN Reason: Constipation Metoclopramide HCl (Reglan) 10 mg IVPUSH ONETIME ONE Stop: 11/22/16 18:23 Last Admin: 11/22/16 18:38 Dose: 10 mg Midazolam HCl (Versed 1 Mg/Ml) Confirm Administered Dose 2 mg .ROUTE .STK-MED ONE Stop: 11/22/16 09:25 Miscellaneous Information (Remove Patch) 1 ea TRDERM ONETIME [facility] Stop: 11/25/16 21:00 Morphine Sulfate (Duramorph Pf) Confirm Administered Dose 10 mg .ROUTE .STK-MED ONE Stop: 11/22/16 09:26 Morphine Sulfate (Morphine) 2 mg IVPUSH Q2H PRN PRN Reason: Breakthrough Pain Naloxone HCl (Narcan) 0.1 mg IVPUSH Q5M PRN PRN Reason: Oversedation Ondansetron HCl (Zofran) Confirm Administered Dose 4 mg .ROUTE .STK-MED ONE Stop: 11/22/16 09:25 Ondansetron HCl (Zofran) 4 mg IVPUSH Q6H PRN PRN Reason: Nausea/Vomiting Last Admin: 11/23/16 06:54 Dose: 4 mg Oxycodone/Acetaminophen (Percocet 325-5 Mg) 1 - 2 tab PO Q4H PRN PRN Reason: Pain Last Admin: 11/23/16 12:57 Dose: 2 tab Propofol (Diprivan 20 Ml) Confirm Administered Dose 200 mg .ROUTE .STK-MED ONE Stop: 11/22/16 09:25 Propofol (Diprivan 20 Ml) Confirm Administered Dose 200 mg .ROUTE .STK-MED ONE Stop: 11/22/16 11:51 Propofol (Diprivan 20 Ml) Confirm Administered Dose 200 mg .ROUTE .STK-MED ONE Stop: 11/22/16 12:27 Scopolamine (Transderm-Scop) 1.5 mg TOP ONETIME ONE Stop: 11/22/16 17:25 Last Admin: 11/22/16 18:05 Dose: 1.5 mg Senna (Senna) 8.6 mg PO BID PRN PRN Reason: Constipation Sodium Chloride (Saline Flush) 10 ml FLUSH ASDIRECTED PRN PRN Reason: Keep Vein Open Stop: 11/22/16 12:00 Tranexamic Acid (Cyklokapron) Confirm Administered Dose 1,000 mg .ROUTE .STK- MED ONE Stop: 11/22/16 09:49 Tranexamic Acid (Cyklokapron) Confirm Administered Dose 1,000 mg .ROUTE .STK- MED ONE Stop: 11/22/16 09:56 Last Admin: 11/22/16 12:34 Dose: 1,000 mg Triamcinolone Acetonide (Kenalog-40) Confirm Administered Dose 80 mg .ROUTE .STK -MED ONE Stop: 11/22/16 09:49 Last Admin: 11/22/16 13:00 Dose: 80 mg Vancomycin HCl (Vancomycin) Confirm Administered Dose 1 gm .ROUTE .STK-MED ONE Stop: 11/22/16 09:49 Last Admin: 11/22/16 12:31 Dose: 1 gm *Q Meaningful Use (DIS) - VTE *Q VTE Criteria *Q: - Stroke *Q Stroke Criteria *Q: - AMI *Q AMI Criteria *Q:
== END 2016-11-23 15:30 | disposition home or self-care (01) | DRG 302 ==
LOC: JD.OB 08:07 → JD.ICU 14:31
PROVIDERS: ADMIT Orthopaedic Surgery; ATTEND Orthopaedic Surgery
PROC: 0SRC0J9 Replacement of Right Knee Joint with Synthetic Substitute, Cemented, Open Approach (ICD-10-PCS; principal; 2016-11-22)
PROC: 3E0U33Z Introduction of Anti-inflammatory into Joints, Percutaneous Approach (ICD-10-PCS; 2016-11-22)
PROC: 3E0U3BZ Introduction of Anesthetic Agent into Joints, Percutaneous Approach (ICD-10-PCS; 2016-11-22)
DX: M17.0 Bilateral primary osteoarthritis of knee (principal); Z79.899 Other long term (current) drug therapy; Z87.891 Personal history of nicotine dependence; Z91.018 Allergy to other foods; Z91.09 Other allergy status, other than to drugs and biological substances; R30.9 Painful micturition, unspecified; E78.00 Pure hypercholesterolemia, unspecified; F41.9 Anxiety disorder, unspecified
CPT/HCPCS: 01402; 36415; 73560-26-RT; 73560-RT; 80053; 85027; 87641; 93005; 97110-GP; 97116-GP; 97161-GP; 97165-GO; 97530-GP; 97535-GO; A9270-GY; C1776; J0171; J0690; J0697; J1200; J1885; J2250; J2270; J2405; J2704; J2765; J3010; J3301; J3370; J3490; J7050; J7120

== ENCOUNTER 2018-10-24 21:29 | Emergency (ER) | payer BC ==
[2018-10-24 21:42] VITALS: BP 152/83; PULSE 77
--- NOTE | 2018-10-24 21:59 | EDM.PDOC ---
ED HPI GENERAL MEDICAL PROBLEM - General Chief Complaint: Lower Extremity Injury/Pain Stated Complaint: RT KNEE INJURY Time Seen by Provider: 10/24/18 21:47 Source of Information: Reports: Patient, RN Notes Reviewed History Limitations: Reports: No Limitations - History of Present Illness INITIAL COMMENTS - FREE TEXT/NARRATIVE: Patient is a 58-year-old female who presents to the ED for evaluation of a right knee injury. The patient states she was walking down the street near her [place], she looked down at her watch and ended up catching her foot on something on the street and fell. She landed on her right knee pretty hard, she braced herself with her right palm as well. Patient would rate her pain at around a 7 out of 10 to her right knee and her right palm, she can move all of her joints, and denies any numbness or tingling in either extremity. The patient does have scattered abrasions on the right knee, and the right and left palms. However bleeding is controlled at this time. This incident was around 8 PM tonight, and the patient was able to walk afterwards. The patient has a right sided knee replacement. The patient did not hit her head, nor does she recall any loss of consciousness, blacking out, or dizziness before the fall. She states she just tripped over her own 2 feet. Right Knee Pain Score (Numeric/FACES): 7 - Related Data Allergies Allergy/AdvReac Type Severity Reaction Status Date / Time adhesive tape Allergy Itching Verified 10/24/18 21:43 pear Allergy throat Verified 10/24/18 21:43 closes strawberry Allergy throat Verified 10/24/18 21:43 closes watermelon Allergy throat Uncoded 10/24/18 21:43 closes Home Meds: Home Meds LORazepam 0.5 mg PO Q6H PRN 11/21/16 [History] Aspirin [Theodore Chewable] 81 mg PO DAILY 10/24/18 [History] Cholecalciferol (Vitamin D3) [Vitamin D] 1 tab PO DAILY 10/24/18 [History] FLUoxetine HCl [Prozac] 20 mg PO QAM 10/24/18 [History] Ferrous Gluconate [Iron] 256 mg PO DAILY 10/24/18 [History] Past Medical History HEENT 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: Allergic Rhinitis, Other (See Below) Other HEENT History: glasses Cardiovascular 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: High Cholesterol Respiratory 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: None Genitourinary 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: None 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 TEAM LEADER 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: , Other (See Below) Other 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 TEAM LEADER History: menopausal Musculoskeletal 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: Osteoarthritis Neurological 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: None Psychiatric 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: Anxiety Endocrine/Metabolic 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: None Hematologic 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: None Immunologic 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: None Oncologic (Cancer) 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: None Dermatologic 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: Other (See Below) Other Dermatologic History: eczematoid dermatitis - Past Surgical History Head Surgeries/Procedures: Reports: None Cardiovascular Surgical 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: None Respiratory Surgical 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: None GI Surgical 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: Appendectomy Female Surgical 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: Section, Other (See Below) Other Female Surgeries/Procedures: exploratory lapaprotomy Musculoskeletal Surgical 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: Arthroscopic Knee, Shoulder Surgery, Other (See Below) Other Musculoskeletal Surgeries/Procedures:: R knee replacement Oncologic Surgical 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: None Social & Family History - Family History Family Medical History: Noncontributory - Tobacco Use Smoking Status *Q: Never Smoker - Caffeine Use Caffeine Use: Reports: Coffee - Recreational Drug Use Recreational Drug Use: No Review of Systems - Review of Systems Review Of Systems: ROS reveals no pertinent complaints other than HPI. Constitutional: Reports: No Symptoms Eyes: Reports: No Symptoms Ears: Reports: No Symptoms Nose: Reports: No Symptoms Mouth/Throat: Reports: No Symptoms Respiratory: Reports: No Symptoms Cardiovascular: Reports: No Symptoms GI/Abdominal: Reports: No Symptoms Genitourinary: Reports: No Symptoms Musculoskeletal: Reports: No Symptoms Skin: Reports: No Symptoms Neurological: Denies: Dizziness, Headache, Numbness, Tingling, Difficulty Walking, Weakness Psychiatric: Reports: No Symptoms ED EXAM, GENERAL - Physical Exam Exam: See Below Exam Limited By: No Limitations General Appearance: Alert, WD/WN, No Apparent Distress Eye Exam: Bilateral Eye: EOMI, Normal Inspection, PERRL Respiratory/Chest: No Respiratory Distress, Lungs Clear, Normal Breath Sounds, No Accessory Muscle Use, Chest Non-Tender Cardiovascular: Normal Peripheral Pulses, Regular Rate, Rhythm, No Murmur Peripheral Pulses: 3+: Radial (L), Radial (R), Dorsalis Pedis (L), Dorsalis Pedis (R) Extremities: Normal Inspection, Normal Range of Motion, Normal Capillary Refill Neurological: Alert, Oriented, Normal Cognition, No Motor/Sensory Deficits Psychiatric: Normal Affect, Normal Mood Skin Exam: Warm, Dry, Normal Color, No Rash, Other (Abrasion over her right knee , right anterior proximal palm and left anterior proximal palm.) Course - Vital Signs Last Recorded V/S: Last Vital Signs Temp Pulse 77 10/24/18 21:39 Resp 16 10/24/18 21:39 BP 152/83 H 10/24/18 21:39 Pulse Ox 99 10/24/18 21:39 - Orders/Labs/Meds Meds: Medications Discontinued Medications Generic Name Dose Route Start Last Admin Trade Name Rich PRN Reason Stop Dose Admin Acetaminophen 650 mg 10/24/18 22:02 10/24/18 22:14 Tylenol PO 10/24/18 22:03 650 mg NOW ONE Administration Diphtheria/Tetanus/Acell Pertussis 0.5 ml 10/24/18 22:56 10/24/18 23:00 Adacel IM 10/24/18 22:57 0.5 ml .ONCE ONE Administration - Re-Assessments/Exams Free Text/Narrative Re-Assessment/Exam: 10/24/18 22:00 Patient presents to the ED for evaluation of a couple injuries after her fall. Did order a knee x-ray as she has had a prosthesis placed, she is able to move the knee but I want to make sure that she has not fractured around the prosthesis. All other areas have minor scrapes and abrasions except the knee is the worst. 10/24/18 22:27 The patient's x-rays are done, and I cannot appreciate any sort of acute abnormality at this time, nor can Dr. Gold. However I will have V rad perform a reading due to the knee prosthesis artifact. With anticipation there is nothing acute, the patient will be discharged home with general recommendations. Departure - Departure Time of Disposition: 22:28 Disposition: Home, Self-Care 01 Condition: Fair Clinical Impression: Abrasion, multiple sites Right knee pain Qualifiers: Chronicity: acute Qualified Code(s): M25.561 - Pain in right knee - Discharge Information *PRESCRIPTION DRUG MONITORING PROGRAM REVIEWED*: No *COPY OF PRESCRIPTION DRUG MONITORING REPORT IN PATIENT EMILY: No Instructions: Knee Pain, Adult, [id number] Referrals: Tana Aviles HOME ADVISOR [Primary Care Provider] - Forms: ED Department Discharge Additional Instructions: You have been evaluated in the ED for your right knee pain. Your x-ray demonstrated no acute fracture or bony abnormality. Please use ice as tolerated to the affected area. Please try to elevate the affected area to relieve swelling. You may take Tylenol 500 mg or ibuprofen 600mg q6 hrs for pain relief. Please do so until you have a tolerable level of pain with activity. Do not exceed 4000mg Tylenol or 3200mg ibuprofen in a 24 hour time period. If your pain is not getting much better in roughly 1 week's time, recommend that you follow up with your primary care provider for further management. Please return to ED if your symptoms should change or worsen.
[2018-10-24] MEDS ORDERED: Acetaminophen 325 MG Tab PO ONE (22:02)
[2018-10-24] MEDS ORDERED: Diphtheria,Pertussis(Acell),Tetanus Vaccine 0.5 ML SDV IM ONE (22:56)
--- NOTE | 2018-10-25 08:05 | CR ---
Right knee: Four views of the right knee were obtained. Comparison: Prior postoperative knee study of 11/22/16. Knee prosthesis is seen. Components are aligned. Underlying bony structures are intact. No fracture or other bony abnormality is seen. Impression: 1. Right knee prosthesis. 2. No acute abnormality is appreciated. Diagnostic code #2 I agree with preliminary report from [facility], finalized on 10/24/18, 11:44 PM Central Time, code #2
== END 2018-10-24 23:05 | disposition home or self-care (01) ==
LOC: JD.ED 21:29
DX: S80.211A Abrasion, right knee, initial encounter (principal); S60.511A Abrasion of right hand, initial encounter; S60.512A Abrasion of left hand, initial encounter; Z23 Encounter for immunization; Z96.651 Presence of right artificial knee joint; Z79.82 Long term (current) use of aspirin; Z79.899 Other long term (current) drug therapy; Z90.49 Acquired absence of other specified parts of digestive tract; Z91.09 Other allergy status, other than to drugs and biological substances; Z91.018 Allergy to other foods; W19.XXXA Unspecified fall, initial encounter
CPT/HCPCS: 73564-26-RT; 73564-RT; 90471; 90715; 99283-25; A9270-GY

== ENCOUNTER 2020-01-06 16:41 | Emergency (ER) | payer BC ==
[2020-01-06 17:12] VITALS: BP 165/80; PULSE 82
[2020-01-06] MEDS ORDERED: Sodium Chloride 0.9% 1,000 ML IV STA (18:50)
[2020-01-06] MEDS ORDERED: Ondansetron 4 MG/2 ML SDV IVPUSH ONE (18:50)
[2020-01-06] MEDS ORDERED: HYDROmorphone 0.5 MG/0.5 ML Syringe IVPUSH ONE (18:50)
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
--- NOTE | 2020-01-07 09:25 | CT ---
PROCEDURE INFORMATION: Exam: CT Abdomen And Pelvis Without Contrast Exam date and time: 01/06/2020 7:02 PM Age: 59 years old Clinical indication: Abdominal pain; Generalized TECHNIQUE: Imaging protocol: Computed tomography of the abdomen and pelvis without contrast. COMPARISON: No relevant prior studies available. FINDINGS: Liver: Normal. No mass. Gallbladder and bile ducts: Normal. No calcified stones. No ductal dilation. Pancreas: There is moderate inflammation/fat stranding adjacent to the pancreatic head/uncinate process. There is adjacent mesenteric haziness/stranding as well as multiple mildly prominent mesenteric lymph nodes. These mesenteric lymph nodes measure up to approximately 1 cm. Spleen: Normal. No splenomegaly. Adrenal glands: Normal. No mass. Kidneys and ureters: Normal. No hydronephrosis. Stomach and bowel: Scattered colonic diverticula Appendix: No evidence of appendicitis. Intraperitoneal space: Unremarkable. No free air. No significant fluid collection. Vasculature: Unremarkable. No abdominal aortic aneurysm. Lymph nodes: See "Pancreas" finding. Urinary bladder: Unremarkable as visualized. Reproductive: Unremarkable as visualized. Bones/joints: Degenerative changes at L5-S1. Minimal anterolisthesis of L5 on S1. Soft tissues: Unremarkable. Other findings: The the lack of intravenous contrast material limits evaluation of the abdominal/pelvic organs. LUCYMADIRANI | Final Radiology Report CONFIDENTIALITY STATEMENT This report is intended only for use by the referring physician, and only in accordance with law. If you received this in error, call [phone]. Page 2 of 2 IMPRESSION: 1. Inflammation/soft tissue stranding adjacent to the pancreatic head/uncinate process. Correlate clinically and with laboratory values to assess for possible acute pancreatitis. 2. The above inflammation is contiguous with mesenteric inflammation/stranding where there are multiple small to borderline sized mesenteric lymph nodes. 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 Thank you for allowing us to participate in the care of your patient. Dictated and Authenticated by: Rom Prasad MD 01/06/2020 8:56 PM Central Time ([place] & [place]) JUAN
== END 2020-01-06 20:55 | disposition home or self-care (01) ==
LOC: JD.ED 16:41
DX: R10.11 Right upper quadrant pain (principal); F41.9 Anxiety disorder, unspecified; Z91.09 Other allergy status, other than to drugs and biological substances; Z91.018 Allergy to other foods; Z90.49 Acquired absence of other specified parts of digestive tract; Z79.82 Long term (current) use of aspirin; Z79.899 Other long term (current) drug therapy
CPT/HCPCS: 36415; 74176; 80053; 81001; 83690; 85025; 86140; 96374; 96375; 99284; J1170; J2405; J7030

== ENCOUNTER 2020-03-26 07:02 | Day surgery (SDC) | payer BC ==
[~2020-03-26 07:02] MED LIST changes: +Lidocaine 1%/Sod Bicarbonate in NS 8.4% 1 ML Syringe IDERM PRN; -Lidocaine 1%/Sod Bicarbonate in NS 8.4% 1 ML Syringe PRN
[2020-03-26] MEDS ORDERED: Propofol 200 MG/20 ML SDV ONE ×3 (07:49→10:01)
[2020-03-26] MEDS ORDERED: fentaNYL 100 MCG/2 ML SDV ONE (07:49)
[2020-03-26] MEDS ORDERED: Lidocaine 1% 4 ML ONE (07:49)
[2020-03-26] MEDS ORDERED: Midazolam 1 MG/ML 2 ML SDV ONE (07:49)
--- NOTE | 2020-03-26 08:14 | PCM.PREANE ---
Preanesthetic Assessment - Procedure Proposed Procedure: egd colonoscopy - Anesthesia/Transfusion/Family Hx Anesthesia History: Prior Anesthesia Without Reaction Family History of Anesthesia Reaction: No Transfusion History: Prior Transfusion Without Reaction Intubation History: Unknown - Review of Systems General: No Symptoms Pulmonary: No Symptoms Cardiovascular: No Symptoms Gastrointestinal: No Symptoms Neurological: Change in Speech Other: Reports: Anxiety - Physical Assessment NPO Status Date: 03/25/20 NPO Status Time: 21:30 Vital Signs: 134/72 78 96% 16 98.4 Height: 5 ft 5 in Weight: 87.7 kg ASA Class: 2 Mental Status: Alert & Oriented x3 Airway Class: Mallampati = 1 Dentition: Reports: Normal Dentition Thyro-Mental Finger Breadths: 3 Mouth Opening Finger Breadths: 3 ROM/Head Extension: Full Lungs: Clear to Auscultation, Normal Respiratory Effort Cardiovascular: Regular Rate, Regular Rhythm - Allergies Allergies/Adverse Reactions: Allergies Allergy/AdvReac Type Severity Reaction Status Date / Time No Known Allergies Allergy Verified 03/25/20 13:10 - Blood Blood Available: No - Acknowledgements Anesthesia Type Planned: MAC Pt an Appropriate Candidate for the Planned Anesthesia: Yes Alternatives and Risks of Anesthesia Discussed w Pt/Guardian: Yes Pt/Guardian Understands and Agrees with Anesthesia Plan: Yes PreAnesthesia Questionnaire HEENT 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: Allergic Rhinitis, Other (See Below) Other HEENT History: glasses Cardiovascular 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: High Cholesterol Respiratory 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: None Gastrointestinal 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: Colon Polyp, Other (See Below) Other Gastrointestinal History: post operative nausea and vomiting Genitourinary 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: None DIRECTOR PUBLIC SERVICE 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: , Other (See Below) Other OB/BYN History: menopausal Musculoskeletal 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: Osteoarthritis Neurological 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: None Psychiatric 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: Anxiety, Panic Attack Endocrine/Metabolic 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: None Hematologic 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: None Immunologic 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: None Oncologic (Cancer) 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: None Dermatologic 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: Other (See Below) Other Dermatologic History: eczematoid dermatitis - Past Surgical History Head Surgeries/Procedures: Reports: None HEENT Surgical 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: None Cardiovascular Surgical 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: None Respiratory Surgical 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: None GI Surgical 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: Appendectomy Female Surgical 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: Section, Other (See Below) Other Female Surgeries/Procedures: exploratory lapaprotomy Endocrine Surgical 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: None Neurological Surgical 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: None Musculoskeletal Surgical 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: Arthroscopic Knee, Knee Replacement, Shoulder Surgery, Other (See Below) Other Musculoskeletal Surgeries/Procedures:: R knee replacement Oncologic Surgical 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: None - SUBSTANCE USE Tobacco Use Status *Q: Former Tobacco User Tobacco Use Within Last Twelve Months: No Second Hand Smoke Exposure: No Days Per Week of Alcohol Use: 0 Recreational Drug Use History: No - HOME MEDS Home Medications: Home Meds LORazepam 0.5 mg PO Q6H PRN 11/21/16 [History] Cholecalciferol (Vitamin D3) [Vitamin D] 5,000 unit PO DAILY 10/24/18 [History] FLUoxetine HCl [Prozac] 20 mg PO QAM 10/24/18 [History] Acetaminophen [Tylenol] 650 mg PO Q4H PRN 03/25/20 [History] Amoxicillin 2,000 mg PO DAILY 03/25/20 [History] Ascorbic Acid [Vitamin C] 1,000 mg PO DAILY 03/25/20 [History] Fish Oil/[place]-3 Fatty Acids [Fish Oil 1,000 MG] 1 gm PO DAILY 03/25/20 [History] Fluticasone Propionate [Flonase] 1 dose NASBOTH DAILY 03/25/20 [History] L.acidoph,Paracasei, B.lactis [Probiotic] 1 cap PO DAILY 03/25/20 [History] - CURRENT (IN HOUSE) MEDS Current Meds: Current Medications Lactated Ringer's (Ringers, Lactated) 1,000 mls @ 125 mls/hr IV ASDIRECTED STARR Stop: 03/26/20 23:00 Lidocaine/Sodium Bicarbonate (Buffered Lidocaine 1% In Ns 8.4%) 0.25 ml IDERM ONETIME PRN PRN Reason: Prior to IV Start Stop: 03/26/20 18:00 Sodium Chloride (Saline Flush) 10 ml FLUSH ASDIRECTED PRN PRN Reason: Keep Vein Open Stop: 03/26/20 18:00 Discontinued Medications Fentanyl (Sublimaze) Confirm Administered Dose 100 mcg .ROUTE .STK-MED ONE Stop: 03/26/20 07:50 Lidocaine HCl (Xylocaine-Mpf 1%) Confirm Administered Dose 4 mls @ as directed .ROUTE .STK-MED ONE Stop: 03/26/20 07:50 Midazolam HCl (Versed 1 Mg/Ml) Confirm Administered Dose 2 mg .ROUTE .STK-MED ONE Stop: 03/26/20 07:50 Propofol (Diprivan 20 Ml) Confirm Administered Dose 200 mg .ROUTE .STK-MED ONE Stop: 03/26/20 07:50
--- NOTE | 2020-03-26 10:33 | PCM48HPAN ---
Post Anesthesia Note - EVALUATION WITHIN 48HRS OF ANESTHETIC Vital Signs in Normal Range: Yes Patient Participated in Evaluation: Yes Respiratory Function Stable: Yes Airway Patent: Yes Cardiovascular Function Stable: Yes Hydration Status Stable: Yes Pain Control Satisfactory: Yes Nausea and Vomiting Control Satisfactory: Yes Mental Status Recovered: Yes Vital Signs: Last Vital Signs Temp 98.4 F 03/26/20 08:05 Pulse 78 03/26/20 08:05 Resp 16 03/26/20 08:05 BP 134/72 03/26/20 08:05 Pulse Ox 96 03/26/20 08:05 1028 74 16 98.3 116/71 93%
--- NOTE | 2020-03-26 10:39 | PCM.OPNOTE ---
- General Post-Op/Procedure Note Date of Surgery/Procedure: 03/26/20 Operative Procedure(s): EGD and colonoscopy Findings: 1. Hiatal hernia 2. Irregular Z-line 3. Bile reflux 4. Gastritis 5. Duodenitis and irregular duodenal mucosa 6. Cecal polyp 7. Ascending colon polyp 8. Diverticulosis Pre Op Diagnosis: History of adenomatous polyp incompletely resected, nausea, abdominal pain Post-Op Diagnosis: same Anesthesia Technique: MAC Primary Surgeon: Priscila Edgar Anesthesia Provider: Lyndsey Mejía Pathology: 1. Z-line biopsies 2. Gastric antrum biopsies 3. Duodenal biopsies 4. Cecal polyp 5. Ascending colon polyp Fluid Replacement, Intraop: 800 Complications: none apparent Condition: Good
--- NOTE | 2020-03-26 10:42 | PCM.PRNOTE ---
- Free Text/Narrative Note: Operative Report Date of Procedure: March 26, 2020 Pre Op Diagnosis: History of adenomatous polyp incompletely resected, nausea, abdominal pain Post-Op Diagnosis: same Operative Procedures: 1. EGD with biopsy 2. Colonoscopy to the cecum Primary Surgeon: Priscila Edgar MD Anesthesia Provider: Lyndsey Mejía CRNA Anesthesia Technique: MAC IV Fluid Replacement, Intraop: 800cc crystalloid Output, Urine Amount: 0cc EBL in mLs: 0cc Findings: 1. Hiatal hernia 2. Irregular Z-line 3. Bile reflux 4. Gastritis 5. Duodenitis and irregular duodenal mucosa 6. Cecal polyp 7. Ascending colon polyp 8. Diverticulosis Specimens: 1. Z-line biopsies 2. Gastric antrum biopsies 3. Duodenal biopsies 4. Cecal polyp 5. Ascending colon polyp Drain/Tubes: None Indication: The patient is a 59-year-old lady who presented to the clinic with history of an incompletely resected colon polyp. The patient reported symptoms of abdominal pain and nausea in addition. The patient was consented for a diagnostic EGD and colonoscopy. Risks of bleeding, and perforation were discussed, and the patient agreed to the risks and wished to proceed. Description of the procedure: The patient was taken back to the endoscopy suite, and placed in the left lateral decubitus position. A bite block was placed. The patient was sedated with MAC anesthesia. The Olympus video endoscope was inserted into the oropharynx and guided under direct vision into the esophagus, stomach, and duodenum. The duodenal bulb and second portion of the duodenum were remarkable for polypoid mucosa and erythema consistent with duodenitis. Biopsies were taken in the duodenum using a cold biopsy forceps. The gastric antrum was inspected and cold biopsy forceps were used to take tissue samples for H. pylori. The gastric mucosa appeared edematous consistent with gastritis. The scope was withdrawn to the stomach and retroflexed. There was bilious fluid pooled in the stomach. No erosions or ulcers were noted. The scope was withdrawn to the esophagus. A this point we noted a hiatal hernia. Irregularity of the Z-line was noted and biopsies were taken in 4 quadrants using a cold biopsy forceps. The endoscope was then withdrawn. Next, anorectal examination was performed. No lesions, masses or hemorrhoids were noted externally or on palpation. The scope was placed into the rectum and advanced to cecum. Upon reaching the cecum, and the patients cecum was entered. There was mild tortuosity of the colon. The ileocecal valve was well v isualized and the appendiceal orifice identified. At this point, the scope was slowly withdrawn, paying attention to the mucosa. The patient had good bowel prep, 85-90% of the mucosa was visible. A 2 mm flat, cecal polyp was noted and removed with a jumbo cold biopsy forceps. An additional 6 mm, sessile polyp was noted in the ascending colon in the area of the previously unresected polyp. This was removed in a piecemeal fashion using a jumbo cold biopsy forceps. A single diverticulum was noted in the ascending colon and an additional diverticula noted in the descending colon. In the rectum, scope was retroflexed and some hemorrhoidal tissue was noted. The scope was placed back in the lumen and excess air was aspirated. The scope was removed. The patient tolerated the procedure very well. Complications: None apparent Condition: The patient was transported to PACU in stable condition. Priscila Edgar MD General Surgery
[2020-03-26 11:49] VITALS: BP 122/80; PULSE 78
== END 2020-03-26 11:16 | disposition home or self-care (01) ==
LOC: JD.SDS 07:02
PROVIDERS: ATTEND Surgery
DX: D12.2 Benign neoplasm of ascending colon (principal); D72.820 Lymphocytosis (symptomatic); K63.89 Other specified diseases of intestine; K57.30 Diverticulosis of large intestine without perforation or abscess without bleeding; K29.50 Unspecified chronic gastritis without bleeding; K44.9 Diaphragmatic hernia without obstruction or gangrene; K31.89 Other diseases of stomach and duodenum; K21.9 Gastro-esophageal reflux disease without esophagitis; K29.80 Duodenitis without bleeding; K64.9 Unspecified hemorrhoids; E78.2 Mixed hyperlipidemia; Z98.890 Other specified postprocedural states; Z79.82 Long term (current) use of aspirin; Z79.899 Other long term (current) drug therapy; Z87.891 Personal history of nicotine dependence; Z91.018 Allergy to other foods
CPT/HCPCS: 43239; 45380; J2001; J2250; J2704; J3010; J7120; 00813

== ENCOUNTER 2022-03-22 06:39 | Day surgery (SDC) | payer BC ==
[~2022-03-22 06:39] MED LIST changes: +Dexamethasone 4 MG/ML 5 ML MDV ONE; +Dexmedetomidine 200 MCG/2 ML SDV ONE; +Lactated Ringers 1,000 ML ONE; +Midazolam 1 MG/ML 2 ML SDV ONE; +Ondansetron 4 MG/2 ML SDV ONE; +Propofol 200 MG/20 ML SDV ONE; +Rocuronium 50 MG/5 ML Vial ONE; -Sodium Chloride 0.9% 10 ML Syringe FLUSH PRN; +ceFAZolin 2 GM Vial ONE; +fentaNYL 100 MCG/2 ML SDV ONE
[2022-03-22] MEDS ORDERED: Ropivacaine 0.5% 5 MG/ML 30 ML SDV ONE (06:41)
[2022-03-22] MEDS ORDERED: EPINEPHrine 1 MG/ML SDV ONE (06:41)
[2022-03-22] MEDS ORDERED: Scopolamine 1.5 MG Transdermal Patch TRDERM ONE (06:46)
[2022-03-22] MEDS ORDERED: Vancomycin 1 GM SDV ONE (06:49)
[2022-03-22] MEDS ORDERED: Tranexamic Acid 1,000 MG/10 ML Vial ONE (06:49)
[2022-03-22] MEDS ORDERED: Lidocaine 1% PF 2 ML SDV ONE (08:00)
[2022-03-22] MEDS ORDERED: Ondansetron 4 MG/2 ML SDV IVPUSH PRN (08:37)
[2022-03-22] MEDS ORDERED: HYDROmorphone 0.5 MG/0.5 ML Syringe IVPUSH PRN (08:37)
[2022-03-22] MEDS ORDERED: fentaNYL 100 MCG/2 ML SDV IVPUSH PRN (08:37)
[2022-03-22] MEDS ORDERED: ePHEDrine 50 MG/ML SDV ONE (08:53)
[2022-03-22] MEDS ORDERED: Sodium Chloride 0.9% 10 ML Syringe FLUSH SCH (09:00)
[2022-03-22] MEDS ORDERED: Neostigmine Methylsulfate 10 MG/10 ML MDV ONE (09:11)
[2022-03-22] MEDS ORDERED: Acetaminophen/HYDROcodone 325-5 MG Tab PO ONE (10:05)
[2022-03-22 11:58] VITALS: BP 110/70; PULSE 72
== END 2022-03-22 12:15 | disposition home or self-care (01) ==
LOC: JD.SDS 06:39 → EDSTATUS 08:45 → JD.SDS 12:15
PROVIDERS: ATTEND Orthopaedic Surgery
DX: M19.011 Primary osteoarthritis, right shoulder (principal); E78.00 Pure hypercholesterolemia, unspecified; F41.9 Anxiety disorder, unspecified; E55.9 Vitamin D deficiency, unspecified; M19.90 Unspecified osteoarthritis, unspecified site; Z87.891 Personal history of nicotine dependence; Z79.899 Other long term (current) drug therapy; Z91.048 Other nonmedicinal substance allergy status; Z79.82 Long term (current) use of aspirin; Z98.890 Other specified postprocedural states; Z91.040 Latex allergy status
CPT/HCPCS: 23472; 64415; 73020; 76000; 97166; 97535; A9270; C1713; C1769; C1776; J0171; J0690; J1100; J2250; J2405; J2704; J2710; J2795; J3010; J3370; J7120; 01638; J3490